=== PATIENT | male | born 1955 | race Two or more races ===

== ENCOUNTER 2022-10-07 11:58 | Emergency (ER) | payer SELFPAY ==
[~2022-10-07] VITALS: Ht 165.1 cm; Wt 160.0 kg
[2022-10-07 12:58] VITALS: BP 126/89
[2022-10-07] MEDS ORDERED: TRIA0.02 TOP (13:12)
[2022-10-07] MEDS ORDERED: ACYC-166 PO (13:12)
[2022-10-07] MEDS ORDERED: IBUP800T27 PO (13:12)
== END 2022-10-07 13:21 | disposition home or self-care (01) ==
LOC: ER 11:58
DX: B02.9 Zoster without complications (principal); Z79.899 Other long term (current) drug therapy